=== PATIENT | male | born 1960 | race Caucasian/White ===

== ENCOUNTER 2016-12-13 18:24 | Emergency (ER) | payer OTHER ==
[~2016-12-13] VITALS: Ht 180.3 cm; Wt 103.4 kg
[~2016-12-13 18:24] MED LIST: AZIT250T6 PO; CYCL10TA2 PO; DOCU-109 PO; DOXY50CA PO; METH-39 PO; OMEG1CAP6 PO; OXYC-327 PO; PRED-220 PO; PRED20TA PO; SIMV10TA3 PO
[2016-12-13] MEDS ORDERED: oxyCODONE/APAP 5/325 1 TAB TABLET PO ONE (20:30)
[2016-12-13 21:08] VITALS: BP 134/89
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
== END 2016-12-13 21:35 | disposition home or self-care (01) ==
LOC: ER 18:24
DX: S60.552A Superficial foreign body of left hand, initial encounter (principal); E78.00 Pure hypercholesterolemia, unspecified; K21.9 Gastro-esophageal reflux disease without esophagitis; Z96.669 Presence of unspecified artificial ankle joint; W34.010A Accidental discharge of airgun, initial encounter; Y93.89 Activity, other specified; Y92.89 Other specified places as the place of occurrence of the external cause; Y99.8 Other external cause status
CPT/HCPCS: 73130; 99284

== ENCOUNTER → 2017-03-28 | Outpatient (CLI) | payer OTHER ==
[~2017-03-28] MED LIST changes: +GADOBUTROL 10 MMOL/10 ML VIAL IV ONE
--- NOTE | 2017-03-28 10:04 | KCIC ---
EXAM: Orbits, single view. HISTORY: Metallic foreign body MRI clearance. COMPARISON: None. FINDINGS: Frontal views of the. There is no body overlying the orbits. There is no sinus opacification or air-fluid level. There is mild nasal septal deviation. There is dental amalgam. IMPRESSION: No metallic foreign body to preclude MRI. Electronically signed by: Estephania Darling MD (03/28/2017 10:01 AM) [facility]
--- NOTE | 2017-03-28 13:46 | KCIC ---
MRI of the lumbar spine without and with contrast 03/28/2017 CLINICAL HISTORY: Chronic low back pain which radiates down the left leg. Left leg numbness. History of previous lumbar spine surgery. TECHNIQUE: Unenhanced T1-weighted and T2-weighted sagittal and axial and inversion recovery sagittal images of the lumbar spine were obtained. After the intravenous administration of 10 cc of Gadavist, enhanced T1-weighted sagittal and axial images of the lumbar spine were obtained. FINDINGS: Comparison is made to patient's CT lumbar myelogram dated 11/30/2014. Minimal S-shaped curvature of the thoracolumbar spine is seen. Degenerative signal changes are seen involving the L3-4, L4-5 and L5-S1 discs. Degenerative signal changes are seen within the marrow surrounding these discs. The conus medullaris is normal morphology, position, and signal characteristics. At the L1-2 L1-2, L2-3 and L3-4 disc spaces there are minimal to mild generalized disc bulges. Degenerative changes are seen involving the facet joints bilaterally. There is mild ligamentum flavum hypertrophy bilaterally. These findings when combined do not result in significant central spinal canal or neuroforaminal stenosis. At the L4-5 disc space there is a mild to moderate generalized disc bulge. This is eccentric to the left. Degenerative changes are seen involving the facet joints bilaterally. There is moderate ligamentum flavum hypertrophy bilaterally. These findings when combined result in mild central spinal canal stenosis. Mild bilateral neural foraminal stenosis is seen. At the L5-S1 disc space the patient is status post left hemilaminotomy. There is a mild generalized disc bulge. Degenerative changes are seen involving the facet joints, left greater than right. These findings when combined do not result in significant central spinal canal stenosis. Mild left neural foraminal stenosis is seen. The right neural foramen is patent. IMPRESSION: 1. Post left hemilaminotomy at L5-S1. 2. The changes of degenerative disc disease are seen involving the lumbar spine. These findings do not result in significant central spinal canal stenosis. Mild central spinal canal stenosis is seen at L4-5. Mild bilateral neural foraminal stenosis is seen at L4-5. Mild left neural foraminal stenosis is seen at L5-S1. Electronically signed by: Chirag Mancini MD (03/28/2017 1:43 PM) [facility]
== END | disposition home or self-care (01) ==
LOC: KCIC MRI 09:30
PROVIDERS: ATTEND Family Medicine
DX: J34.2 Deviated nasal septum (principal); M51.16 Intervertebral disc disorders with radiculopathy, lumbar region; M48.061 Spinal stenosis, lumbar region without neurogenic claudication; R20.0 Anesthesia of skin
CPT/HCPCS: 70030; 72158; A9585

== ENCOUNTER 2021-03-17 09:40 | Outpatient (CLI) | payer OTHER ==
[2021-03-17 09:24] VITALS: BP 149/90
[~2021-03-17 09:40] MED LIST changes: +CONTRAST GIVEN. MC PRN; +DICL50TA4 PO; -GADOBUTROL 10 MMOL/10 ML VIAL IV ONE; +IOHEXOL 180 MG/ML 10 ML VIAL. IJ ONE; +LIDOCAINE 1% Multi-Dose 20 ML VIAL. INJ ONE; -OXYC-327 PO; +OXYC1TAB19 PO; +RANI300C PO; +SIMV10TA15 PO; -SIMV10TA3 PO; +SIMV20TA18 PO; +TIZA4TAB2 PO
[2021-03-17 09:46] VITALS: BP 143/100
--- NOTE | 2021-03-17 09:47 | NUR ---
Instructions given to patient. Verbalized understanding. No headache at this time. VS stable. Able to drink coffee w/ no issues. Patient's driving home. All belongings taken with patient at time of discharge.
--- NOTE | 2021-03-17 09:47 | NUR ---
CD provided w/ imaging.
--- NOTE | 2021-03-17 10:27 | RAD ---
EXAM: Fluoroscopic guided lumbar puncture for CT myelography; lumbar spine CT myelogram. HISTORY: Lower back pain and lower extremity pain. TECHNIQUE: The risks of the procedure discussed with the patient and written and verbal consent was o btained. A timeout was performed. The patient was placed in a prone position on the fluoroscopy table and a site overlying L4-L5 was selected for needle entry. The skin in this location was sterilely pr epped, draped and infiltrated with 1 percent lidocaine. A 22-gauge needle was advanced into the theca l sac. Appropriate needle tip positioning was confirmed with spontaneous yield of CSF within the need le hub. 15 cc Isovue 180 intrathecal contrast was injected into the thecal sac. The needle was remove d and a sterile bandage was placed. Prone and upright neutral, flexion and extension views were obtai jojo. A total of 4 fluoroscopic images were obtained. The total fluoroscopy time was 1.1 minute. The p atient was transferred to the CT suite for the post myelogram CT portion of the exam. The patient was monitored in the nursing unit for one or prior to discharge. The patient tolerated the procedure wit hout complication. *One or more of the following individualized dose reduction techniques were utilized for this examina tion: 1. Automated exposure control. 2. Adjustment of the mA and/or kV according to patient size. 3. Use of iterative reconstruction technique. COMPARISON: CT myelogram dated 11/30/2014. FINDINGS: The fluoroscopic images demonstrate 3 mm grade 1 anterolisthesis of L4 on L5 which increase s to 5 mm with flexion and decreases to 2 mm with extension. There is 2 mm retrolisthesis of L3 on L4 which does not change between flexion and extension. There is multilevel endplate remodeling. The CT images demonstrate multilevel endplate remodeling and anterior predominant osteophytosis. Ther e is no fracture or suspicious osseous lesion. There is mild scoliosis. There is 3 mm grade 1 anterol isthesis of L4 on L5. There is 2 mm retrolisthesis of L3 on L4. The conus terminates at L1. There are punctate nonobstructing right renal stones. There is mild aortobiiliac atherosclerosis. There is deg enerative subchondral sclerosis and vacuum phenomenon involving the sacroiliac joints. At L1-L2, there is anterior predominant endplate remodeling. There is moderate right and mild left fa cet arthropathy. There is no stenosis. At L2-L3, there is anterior predominant endplate remodeling. There is mild bilateral facet arthropath y. There is no stenosis. At L3-L4, there is a left foraminal to extra foraminal disc protrusion superimposed on a disc bulge a nd anterior predominant endplate remodeling. There is mild right and moderate left facet arthropathy. There is minimal retrolisthesis. There is mild right and moderate left foraminal stenosis. There is no central canal stenosis. At L4-L5, there is a disc bulge and endplate osteophytosis. There is severe bilateral facet arthropat hy. There is grade 1 anterolisthesis. There is severe left greater than right foraminal stenosis. The re is mild central canal stenosis. At L5-S1, there is a disc bulge. There is mild right and severe left facet arthropathy. There is braeden re left foraminal stenosis. IMPRESSION: 1. Multilevel degenerative change involving the lumbar spine, described in detail above. This is asso ciated with mild right and moderate left foraminal stenosis at L3-L4, severe left greater than right foraminal and mild central canal stenosis at L4-L5 and severe left foraminal stenosis at L5-S1. The d egenerative changes have increased at the mid lower lumbar levels compared to the prior exam. 2. Minimal grade 1 anterolisthesis of L4 and L5, new compared to the prior study. There is stable min imal retrolisthesis of L3 on L4 and mild lumbar scoliosis. Electronically signed by: Estephania Darling MD (03/17/2021 10:25 AM) [id number]
== END 2021-03-17 09:50 | disposition home or self-care (01) ==
LOC: RAD 09:40
PROVIDERS: ATTEND Neurological Surgery
DX: M47.26 Other spondylosis with radiculopathy, lumbar region (principal); M79.606 Pain in leg, unspecified; M48.061 Spinal stenosis, lumbar region without neurogenic claudication; E78.00 Pure hypercholesterolemia, unspecified; G47.30 Sleep apnea, unspecified; M19.90 Unspecified osteoarthritis, unspecified site; E11.9 Type 2 diabetes mellitus without complications; Z79.899 Other long term (current) drug therapy; Z98.890 Other specified postprocedural states; Z72.89 Other problems related to lifestyle; Z82.49 Family history of ischemic heart disease and other diseases of the circulatory system
CPT/HCPCS: 62304; 72132

== ENCOUNTER → 2021-03-30 | Outpatient (CLI) | payer OTHER ==
[2021-03-17 09:46] VITALS: BP 143/100
[~2021-03-30] MED LIST changes: -CONTRAST GIVEN. MC PRN; -IOHEXOL 180 MG/ML 10 ML VIAL. IJ ONE; -LIDOCAINE 1% Multi-Dose 20 ML VIAL. INJ ONE
--- NOTE | 2021-03-30 15:19 | PDOC ---
Progress Note - Pain Clinic Date of Service: DOS: DATE: 03/30/21 TIME: 15:15 Diagnosis: Dx: Lumbar radiculopathy with lumbar degenerative disease lumbar postlaminectomy syndrome History or Present Illness: HPI: 60-year-old male with history of low back and bilateral lower extremity pain last seen January 2019 patient underwent a lumbar epidural steroid traction with about 30% improvement patient has had significant pain low back and bilateral lower extremity since that time is status post L5-S1 decompressive surgery in 2014. Patient had good results initially but then the pain returned fairly significantly over the next 2 to 3 years but the pain still persist in the low back and bilateral lower extremities posterior gluteus posterior thigh posterior calf to the ankles bilaterally. Patient did have a recent MRI scan and CT with myelogram demonstrating multilevel degenerative changes with moderate right and left foraminal stenosis L3-4 severe left greater than right foraminal and mild central canal stenosis at L4-5 and severe left foraminal stenosis at L5-S1. Patient's neurosurgeon is not recommending any surgery at this time is requesting a spinal cord stimulation evaluation. Patient reports the pain is an 8 on scale 10 is worse over the past week 6 on average 5 its least 6 today. Patient reports is constant tight shooting worse with walking standing changing positions better with sitting or lying down the right in the car from 115 to 20 minutes causes significant pain especially in the left leg patient reports better at night better with laying down does not generally awaken her from sleep but can once or twice on average. Patient reports no bowel or bladder incontinence no complete motor loss but significant fatigability of the lower extremities where he has stumbled several times but not fallen. Physical Exam: VS: Blood pressure is 135/95 pulse 81 respirations 18 temperature 97.8 F height is 5 foot 11 inches weight is 248 pounds PE: PHYSICAL EXAMINATION: GENERAL: The patient is awake, alert, oriented, appropriate, very pleasant in demeanor HEENT: Shows normocephalic, atraumatic. Extraocular movements are intact and symmetrical. Oral cavity: Mucous membranes moist and pink. Dentition is intact. NECK: Shows anterior throat supple without palpable lymphadenopathy noted. Swallow reflex symmetrical. CHEST: Shows normal on inspection. Breath sounds are clear bilaterally, no rales rhonchi wheezes auscultated. HEART: Shows S1, S2 clear. No murmurs auscultated. ABDOMEN: Soft, nontender, nondistended, obese. No palpable organomegaly is noted. BACK: Shows spine grossly in the midline. Normal-appearing cervical lordotic curvature. There is slightly increased thoracic kyphosis, some minor flattening of the lumbar lordotic curvature, with well-healed surgical scar. Lumbar paraspinous muscles show symmetrical on inspection, on palpation shows some moderate tenderness diffusely throughout the upper, middle and lower distribution of the paraspinous muscles bilaterally and also into the lower thoracic paraspinous musculature, firm and tender, without specific trigger points, without radiation of pain. The patient has good rotational motion of the lumbar spine, both laterally as well as extension and flexion without significant difficulty. No tenderness over the spinous processes, sacrum or sacroiliac regions. EXTREMITIES: Lower extremities show deep tendon reflexes 2+ in the patellar and tendo calcaneus tendons. Motor exam is 5 on a scale of 5 with right dorsiflexion, extension, quadriceps and hamstring flexion and 5/5 on the left. Peripheral pulses are 1+ posterior tibial. No peripheral edema is noted bilaterally. Lower extremities are warm and dry to touch, equal in color and appearance. SKIN: Shows warm and dry, good turgor. No edema. No sores, rashes or bruising throughout. Procedure: Procedure: Options discussed with the patient. Patient's old chart was reviewed as was his current medication regimen updated and current review of systems updated today as well. We will preauthorize patient for spinal cord stimulator temporary leads placement x2. Patient will have psychiatric evaluation initially and pending clearance will have patient return for spinal cord stimulator trial placement. Medication Injected: Med Injected: None Condition at Discharge: Condition at Discharge: Condition at discharge is stable. TEMI CHACON MD Mar 30, 2021 15:19
== END | disposition home or self-care (01) ==
LOC: PNCL 14:38
PROVIDERS: ATTEND Anesthesiology
DX: M51.16 Intervertebral disc disorders with radiculopathy, lumbar region (principal); M96.1 Postlaminectomy syndrome, not elsewhere classified; M48.061 Spinal stenosis, lumbar region without neurogenic claudication; E78.00 Pure hypercholesterolemia, unspecified; E11.9 Type 2 diabetes mellitus without complications; G47.30 Sleep apnea, unspecified; M19.90 Unspecified osteoarthritis, unspecified site; Z72.89 Other problems related to lifestyle; Z79.899 Other long term (current) drug therapy; Z98.890 Other specified postprocedural states
CPT/HCPCS: 99212; G0463

== ENCOUNTER 2021-04-11 08:37 | Emergency (ER) | payer OTHER ==
[~2021-04-11] VITALS: Ht 175.3 cm; Wt 100.0 kg
[~2021-04-11 08:37] MED LIST changes: +CYCL10TA19 PO; -CYCL10TA2 PO; +TIZA-75 PO; -TIZA4TAB2 PO
[2021-04-11] MEDS ORDERED: ONDANSETRON PF 4 MG/2 ML VIAL. IVP ONE (10:15)
[2021-04-11] MEDS ORDERED: IV NORMAL SALINE 1000ML BAG 1,000 ML IV ONE (10:15)
[2021-04-11] MEDS ORDERED: KETOROLAC 30 MG/ML VIAL. IVP ONE (10:15)
--- NOTE | 2021-04-11 10:18 | PHYS DOC ---
Past Medical History Past Medical History: Constipation, GERD, High Cholesterol, Other Additional Past Medical Histor: high cholesterol Past Surgical History: Knee Replacement Additional Past Surgical Histo: BX CARPAL TUNNEL, L KNEE, BACK Smoking Status: Never Smoker Alcohol Use: Occasionally Drug Use: None General Adult EDM: Chief Complaint: FLANK PAIN HPI: HPI: Patient is a 60-year-old male who presents to the emergency department complaining of sudden onset of left flank pain this morning while at work. Patient reports it hit him like a ton of bricks, 10 out of 10 pain, reports a history of kidney stones, sees a urologist at [facility] for intermittent hematuria, reports his last kidney stone attack was approximately 20 years ago, reports mild nausea without vomiting diarrhea or constipation, denies seeing blood in his stool or his urine, denies abdominal pains or abdominal discomfort, denies chest pain, chest congestion, recent fever or chills. Patient denies injury to his back. Patient denies numbness or tingling to his buttocks or genitals, patient denies urinary pressure, increased urinary frequency, urinary burning, denies STI concerns, denies rashes or lesions to his genitals. Patient denies other physical complaints or physical concerns. Review of Systems: Review of Systems: 14 body systems of review of systems have been reviewed. See HPI for pertinent positives and negative responses, otherwise all other systems are negative, nonpertinent or noncontributory. Constitutional: Negative except as outlined in HPI above. Skin: Negative except as outlined in HPI above. Eyes: Negative except as outlined in HPI above. HENT: Negative except as outlined in HPI above. Respiratory: Negative except as outlined in HPI above. Cardiovascular: Negative except as outlined in HPI above. GI: Negative except as outlined in HPI above. : Negative except as outlined in HPI above. Musculoskeletal: Negative except as outlined in HPI above. Integument: Negative except as outlined in HPI above. Neurologic: Negative except as outlined in HPI above. Endocrine: Negative except as outlined in HPI above. Lymphatic: Negative except as outlined in HPI above. Psychiatric: Negative except as outlined in HPI above. Heart Score: C/O Chest Pain: No Risk Factors: Risk Factors: DM, Current or recent (<one month) smoker, HTN, HLP, family history of CAD, obesity. Risk Scores: Score 0 - 3: 2.5% MACE over next 6 weeks - Discharge Home Score 4 - 6: 20.3% MACE over next 6 weeks - Admit for Clinical Observation Score 7 - 10: 72.7% MACE over next 6 weeks - Early Invasive Strategies Allergies: Allergies: Allergies Coded Allergies Type Severity Reaction Last Updated Verified No Known Drug Allergies 02/03/15 No Physical Exam: PE: Constitutional: Well developed, well nourished, appears uncomfortable otherwise nontoxic in appearance. HENT: Normocephalic, atraumatic. Eyes: Conjunctiva normal, no discharge. Neck: Normal range of motion. Cardiovascular: Distal cap refill less than 2 seconds, no cyanosis appreciated. Lungs & Thorax: Patient is in no respiratory distress, no adventitious lung sounds appreciated. Abdomen: Bowel sounds normal, soft, no tenderness, no masses, no pulsatile masses. No bruising or skin discoloration of the abdomen. Skin: Warm, dry, no erythema, no rash. Back: No midline spinal tenderness, no right-sided CVA TTP, positive left-sided CVA TTP. Extremities: No tenderness, no cyanosis, no clubbing, ROM intact, no edema. Neurologic: Alert and oriented X 3, normal motor function, normal sensory function, no focal deficits noted. Psychologic: Affect normal, judgement normal, mood normal. Current Patient Data: Labs: Laboratory Tests Test 04/11/21 10:10 04/11/21 10:15 White Blood Count 8.4 x10^3/uL Red Blood Count 5.09 x10^6/uL Hemoglobin 14.8 g/dL Hematocrit 44.4 % Mean Corpuscular Volume 87 fL Mean Corpuscular Hemoglobin 29 pg Mean Corpuscular Hemoglobin Concent 33 g/dL Red Cell Distribution Width 15.0 % Platelet Count 219 x10^3/uL Neutrophils (%) (Auto) 77 % Lymphocytes (%) (Auto) 14 % Monocytes (%) (Auto) 7 % Eosinophils (%) (Auto) 2 % Basophils (%) (Auto) 1 % Neutrophils # (Auto) 6.5 x10^3/uL Lymphocytes # (Auto) 1.2 x10^3/uL Monocytes # (Auto) 0.5 x10^3/uL Eosinophils # (Auto) 0.2 x10^3/uL Basophils # (Auto) 0.1 x10^3/uL Sodium Level 140 mmol/L Potassium Level 4.4 mmol/L Chloride Level 105 mmol/L Carbon Dioxide Level 27 mmol/L Anion Gap 8 Blood Urea Nitrogen 13 mg/dL Creatinine 0.9 mg/dL Estimated GFR (Cockcroft-Gault) 86.4 BUN/Creatinine Ratio 14 Glucose Level 119 mg/dL Calcium Level 8.8 mg/dL Total Bilirubin 0.5 mg/dL Aspartate Amino Transf (AST/SGOT) 21 U/L Alanine Aminotransferase (ALT/SGPT) 50 U/L Alkaline Phosphatase 91 U/L Total Protein 7.6 g/dL Albumin 3.9 g/dL Albumin/Globulin Ratio 1.1 Urine Collection Type Unknown Urine Color Yellow Urine Clarity Clear Urine pH 6.5 Urine Specific [place] 1.020 Urine Protein Negative mg/dL Urine Glucose (UA) Negative mg/dL Urine Ketones (Stick) Negative mg/dL Urine Blood Small Urine Nitrite Negative Urine Bilirubin Negative Urine Urobilinogen Dipstick 1.0 mg/dL Urine Leukocyte Esterase Negative Urine RBC 3-5 /HPF Urine WBC Occ /HPF Urine Squamous Epithelial Cells Few /LPF Urine Bacteria 0 /HPF Urine Mucus Mod /LPF Current Medications Medications (Trade) Dose Ordered Sig/Shannan Route PRN Reason Start Time Stop Time Status Last Admin Dose Admin Sodium Chloride 1,000 ml @ 1,000 mls/hr 1X ONCE IV 04/11/21 10:15 04/11/21 11:14 DC 04/11/21 10:37 Ketorolac Tromethamine (Toradol 30mg Vial) 30 mg 1X ONCE IVP 04/11/21 10:15 04/11/21 10:16 DC 04/11/21 10:38 Ondansetron HCl (Zofran) 4 mg 1X ONCE IVP 04/11/21 10:15 04/11/21 10:16 DC 04/11/21 10:38 Laboratory Tests Test 04/11/21 10:10 04/11/21 10:15 White Blood Count 8.4 x10^3/uL Red Blood Count 5.09 x10^6/uL Hemoglobin 14.8 g/dL Hematocrit 44.4 % Mean Corpuscular Volume 87 fL Mean Corpuscular Hemoglobin 29 pg Mean Corpuscular Hemoglobin Concent 33 g/dL Red Cell Distribution Width 15.0 % Platelet Count 219 x10^3/uL Neutrophils (%) (Auto) 77 % Lymphocytes (%) (Auto) 14 % Monocytes (%) (Auto) 7 % Eosinophils (%) (Auto) 2 % Basophils (%) (Auto) 1 % Neutrophils # (Auto) 6.5 x10^3/uL Lymphocytes # (Auto) 1.2 x10^3/uL Monocytes # (Auto) 0.5 x10^3/uL Eosinophils # (Auto) 0.2 x10^3/uL Basophils # (Auto) 0.1 x10^3/uL Sodium Level 140 mmol/L Potassium Level 4.4 mmol/L Chloride Level 105 mmol/L Carbon Dioxide Level 27 mmol/L Anion Gap 8 Blood Urea Nitrogen 13 mg/dL Creatinine 0.9 mg/dL Estimated GFR (Cockcroft-Gault) 86.4 BUN/Creatinine Ratio 14 Glucose Level 119 mg/dL Calcium Level 8.8 mg/dL Total Bilirubin 0.5 mg/dL Aspartate Amino Transf (AST/SGOT) 21 U/L Alanine Aminotransferase (ALT/SGPT) 50 U/L Alkaline Phosphatase 91 U/L Total Protein 7.6 g/dL Albumin 3.9 g/dL Albumin/Globulin Ratio 1.1 Urine Collection Type Unknown Urine Color Yellow Urine Clarity Clear Urine pH 6.5 Urine Specific [place] 1.020 Urine Protein Negative mg/dL Urine Glucose (UA) Negative mg/dL Urine Ketones (Stick) Negative mg/dL Urine Blood Small Urine Nitrite Negative Urine Bilirubin Negative Urine Urobilinogen Dipstick 1.0 mg/dL Urine Leukocyte Esterase Negative Urine RBC 3-5 /HPF Urine WBC Occ /HPF Urine Squamous Epithelial Cells Few /LPF Urine Bacteria 0 /HPF Urine Mucus Mod /LPF Current Medications Medications (Trade) Dose Ordered Sig/Shannan Route PRN Reason Start Time Stop Time Status Last Admin Dose Admin Sodium Chloride 1,000 ml @ 1,000 mls/hr 1X ONCE IV 04/11/21 10:15 04/11/21 11:14 DC 04/11/21 10:37 Ketorolac Tromethamine (Toradol 30mg Vial) 30 mg 1X ONCE IVP 04/11/21 10:15 04/11/21 10:16 DC 04/11/21 10:38 Ondansetron HCl (Zofran) 4 mg 1X ONCE IVP 04/11/21 10:15 04/11/21 10:16 DC 04/11/21 10:38 EKG: EKG: [] Radiology/Procedures: Radiology/Procedures: PATIENT: DONTE NELSON CACCOUNT: [id number] : 1960 LOCATION: ER AGE: 60 SEX: M EXAM STATUS: PRE ER ORD. PHYSICIAN: ELHAM BE APRN REASON: Left CVA tenderness, positive hematuria, stone study PROCEDURE: CT ABDOMEN PELVIS WO CONTRAST CT ABDOMEN+PELVIS WO History: Left CVA tenderness. Positive hematuria. Rule out stone. Comparison: CT lumbar spine 03/17/2021 Technique: Noncontrast CT of the abdomen and pelvis. Findings: Patchy opacification of the left lateral lower lobe may represent atelectasis. No pleural effusion or pneumothorax. Heavy coronary artery calcification and likely coronary stents. Diffuse hypodensity liver compatible steatosis. Unremarkable gallbladder. The pancreas, spleen and adrenal glands are unremarkable. Subtle increased density in the right renal pyramids without discrete stone. No right hydronephrosis. There is mild left hydronephrosis and proximal hydroureter. Left posterior hilar lip 2.3 cm benign cyst. Proximal left ureteral stone measuring 3 mm diameter. The stomach and small bowel are unremarkable. Mild sigmoid diverticulosis. No evidence of diverticulitis. No abdominopelvic adenopathy. The soft tissues are unremarkable. Minimal atherosclerotic calcification of the aorta. Multilevel degenerative changes of the lumbar spine with prominent facet hypertrophy and anterior osteophytes. Impression: 1. Left proximal ureter 3 mm stone with mild hydronephroureter. 2. Hepatic steatosis. 3. Patchy opacification left lateral lower lobe may represent atelectasis. Superimposed infection can't be excluded. ------ Exposure: One or more of the following individualized dose reduction techniques were utilized for this examination: 1. Automated exposure control 2. Adjustment of the mA and/or kV according to patient size 3. Use of iterative reconstruction technique. Electronically signed by: Rory Manjarrez MD (04/11/2021 11:17 AM) [id number] Course & Med Decision Making: Course & Med Decision Making Pertinent Labs and Imaging studies reviewed. (See chart for details) 60-year-old male, vital signs reviewed, presents emergency department concerning sudden onset of left flank/CVA pain. Physical examination concerning for kidney stone pain, will order urinalysis assay, IV Zofran for nausea, IV ondansetron, 1 L normal saline. Urinalysis reveals positive hematuria without leukocyte esterase, negative nitrates, will order CT abdomen pelvis stone study. CT abdomen pelvis concerning for 3 mm stone distal left ureter, upon reevaluation of the patient, patient reports pain relief with medication given in the ED today. Discussed with patient will start on Flomax for a short regimen to assist with passing the kidney stone, the patient's labs are unremarkable other than slight hematuria, patient does have good follow-up [facility], discussed with patient strict follow-up with urologist this week, return to ER precautions or concerns, patient is amenable to ED discharge planning. Discussed with the patient all findings and diagnostic testing as well as the need to follow-up with their primary care provider for further evaluation and treatment or return to the ED if any new or worsening symptoms. Strict return precautions were also discussed at length, the patient voiced understanding and agreement with the discharge planning. The patient was nontoxic in appearance, in no apparent distress, and hemodynamically stable at the time of disposition. Dragon Disclaimer: Dragon Disclaimer: This electronic medical record was generated, in whole or in part, using a voice recognition dictation system. Departure Departure Impression: Primary Impression: Kidney stone on left side Disposition: 01 HOME / SELF CARE / HOMELESS Condition: GOOD Referrals: BRIA SPARKS (PCP) Patient Instructions: Kidney Stones Additional Instructions: You were seen today in the emergency department for pain on the left side of your back. You were diagnosed today with a kidney stone, it is 3 mm. As we discussed, I am writing a prescription for pain medication along with Flomax to help relax her ureter which will assist in helping you passed the stone. Please make an appointment to see your urologist at the [facility] this week for reevaluation of your kidney stone. Drink plenty of fluids. Return to the emergency department for worsening symptoms or other concerns thank you for visiting our Emergency Department. It was a pleasure taking care of you today in the emergency department and we appreciate you trusting us with your care. If any additional problems come up don't hesitate to return to visit us. Please follow up with your primary care provider so they can plan additional care if needed and know about the problem that you had. If symptoms worsen come back to the Emergency Department. Any concerning symptoms that start such as chest pain, shortness of air, weakness or numbness on one side of the body, running high fevers or any other concerning symptoms return to the ER. EMERGENCY DEPARTMENT GENERAL DISCHARGE INSTRUCTIONS Thank you for coming to [facility] Emergency Department (ED) today and trusting us with you care. We trust that you had a positive experience in our Emergency Department. If you wish to speak to the department management, you may call the Director at [phone]. YOUR FOLLOW UP INSTRUCTIONS ARE FOLLOWS: 1. Do you have a private Doctor? If you do not have a private doctor, please ask for a resource list of physicians or clinics that may be able to assist you with follow up care. 2. The Emergency Physicain has interpreted your x-rays. The X-Ray specialist will also review them. If there is a change in the findings, you will be notified in 48 hours when at all possible. 3. A lab test or culture has been done, your results will be reviewed and you will be notified if you need a change in treatment. ADDITIONAL INSTRUCTIONS AND INFORMATION: 1. Your care today has been supervised by a physician who is specially trained in emergency care. Many problems require more than one evaluation for a complete diagnosis and treatment. We recommend that you schedule your follow up appointment as recom mended to ensure complete treatment of you illness or injury. If you are unable to obtain follow up care and continue to have a problem, or if your condition worsens, we recommend that you return to the ED. 2. We are not able to safely determine your condition over the phone nor are we able to give sound medical advice over the phone. For these safety reasons, if you call for medical advice we will ask you to come to the ED for further evaluation. 3. If you have any questions regarding these discharge instructions please call the ED at [phone]. SAFETY INFORMATION: In the interest of safety, wellness, and injury prevention; we encourage you to wear your sealbelt, if you smoke; quite smoking, and we encourage family to use a protective helmet for bicycling and other sporting events that present an increased risk for head injury. IF YOUR SYMPTOMS WORSEN OR NEW SYMPTOMS DEVELOP, OR YOU HAVE CONCERNS ABOUT YOUR CONDITION; OR IF YOUR CONDITION WORSENS WHILE YOU ARE WAITING FOR YOUR FOLLOW UP APPOINTMENT; EITHER CONTACT YOUR PRIMARY CARE DOCTOR, THE PHYSICIAN WHOSE NAME AND NUMBER YOU WERE GIVEN, OR RETURN TO THE ED IMMEDIATELY. Scripts Hydrocodone Bit/Acetaminophen (HYDROCODONE-APAP 5-325 ) 1 Tab Tablet 1 TAB PO PRN Q6HRS PRN for PAIN, #10 TAB 0 Refills Prov: ELHAM BE APRN 04/11/21 Ibuprofen (IBUPROFEN) 600 Mg Tablet 600 MG PO PRN Q6HRS PRN for INFLAMMATION, #20 TAB 0 Refills Prov: ELHAM BE APRN 04/11/21 Tamsulosin Hcl (FLOMAX) 0.4 Mg Cap.er.24h 1 CAP PO DAILY for kidney stone, #5 CAP 0 Refills Prov: ELHAM BE APRN 04/11/21 ELHAM BE APRN Apr 11, 2021 10:17
[2021-04-11 10:24] LABS: BASO # 0.1 x10^3/uL (0.0-0.2); BASO % 1 % (0-3); EOS # 0.2 x10^3/uL (0.0-0.7); EOS % 2 % (0-3); HEMATOCRIT 44.4 % (39.0-53.0); HEMOGLOBIN 14.8 g/dL (13.0-17.5); LYMPH # 1.2 x10^3/uL (1.0-4.8); LYMPH % 14 % (24-48); MEAN CORPUSCULAR HEMOGLOBIN 29 pg (25-35); MEAN CORPUSCULAR HGB CONC 33 g/dL (31-37); MEAN CORPUSCULAR VOLUME 87 fL (79-100); MONO # 0.5 x10^3/uL (0.0-1.1); MONO % 7 % (0-9); NEUT # 6.5 x10^3/uL (1.8-7.7); NEUT % 77 % (31-73); PLATELET COUNT 219 x10^3/uL (140-400); RED BLOOD COUNT 5.09 x10^6/uL (4.30-5.70); WHITE BLOOD COUNT 8.4 x10^3/uL (4.0-11.0)
[2021-04-11 10:25] LABS: BILIRUBIN,URINE NEGATIVE (NEG); CLARITY,URINE CLEAR; COLOR,URINE YELLOW; NITRITE,URINE NEGATIVE (NEG); PH,URINE 6.5 (<5.0-8.0); PROTEIN,URINE NEGATIVE (NEG-TRACE)
[2021-04-11 10:34] LABS: BACTERIA,URINE 0 /HPF (0-FEW); WBC,URINE OCC /HPF (0-4)
[2021-04-11 10:37] LABS: CALCIUM 8.8 mg/dL (8.5-10.1); CREATININE 0.9 mg/dL (0.7-1.3); GFR 86.4; POTASSIUM 4.4 mmol/L (3.5-5.1)
[2021-04-11 10:43] LABS: ALBUMIN 3.9 g/dL (3.4-5.0); ALBUMIN/GLOBULIN RATIO 1.1 (1.0-1.7); TOTAL BILIRUBIN 0.5 mg/dL (0.2-1.0); TOTAL PROTEIN 7.6 g/dL (6.4-8.2)
--- NOTE | 2021-04-11 11:20 | RAD ---
CT ABDOMEN+PELVIS WO History: Left CVA tenderness. Positive hematuria. Rule out stone. Comparison: CT lumbar spine 03/17/2021 Technique: Noncontrast CT of the abdomen and pelvis. Findings: Patchy opacification of the left lateral lower lobe may represent atelectasis. No pleural effusion or pneumothorax. Heavy coronary artery calcification and likely coronary stents. Diffuse hypodensity liver compatible steatosis. Unremarkable gallbladder. The pancreas, spleen and ad renal glands are unremarkable. Subtle increased density in the right renal pyramids without discrete stone. No right hydronephrosis. There is mild left hydronephrosis and proximal hydroureter. Left posterior hilar lip 2.3 cm benign c yst. Proximal left ureteral stone measuring 3 mm diameter. The stomach and small bowel are unremarkable. Mild sigmoid diverticulosis. No evidence of diverticuli tis. No abdominopelvic adenopathy. The soft tissues are unremarkable. Minimal atherosclerotic calcifi cation of the aorta. Multilevel degenerative changes of the lumbar spine with prominent facet hypertr ophy and anterior osteophytes. Impression: 1. Left proximal ureter 3 mm stone with mild hydronephroureter. 2. Hepatic steatosis. 3. Patchy opacification left lateral lower lobe may represent atelectasis. Superimposed infection ca n't be excluded. ------ Exposure: One or more of the following individualized dose reduction techniques were utilized for thi s examination: 1. Automated exposure control 2. Adjustment of the mA and/or kV according to patient size 3. Use of iterative reconstruction technique. Electronically signed by: Rory Manjarrez MD (04/11/2021 11:17 AM) [id number]
[2021-04-11] MEDS ORDERED: HYDR-2761 PO (11:52)
[2021-04-11] MEDS ORDERED: TAMS0.4C97 PO (11:52)
[2021-04-11] MEDS ORDERED: IBUP-1007 PO (11:52)
[2021-04-11 11:56] VITALS: BP 117/70
== END 2021-04-11 12:02 | disposition home or self-care (01) ==
LOC: ER 08:37
DX: R10.9 Unspecified abdominal pain (principal); R11.2 Nausea with vomiting, unspecified; R19.7 Diarrhea, unspecified; K21.9 Gastro-esophageal reflux disease without esophagitis; E78.00 Pure hypercholesterolemia, unspecified
CPT/HCPCS: 36415; 74176; 80053; 81001; 85025; 96361; 96374; 96375; 99285; J1885; J2405; J7030

== ENCOUNTER → 2021-05-04 | Outpatient (CLI) | payer OTHER ==
[2021-04-11 11:56] VITALS: BP 117/70
[~2021-05-04] MED LIST changes: +HYDR-2761 PO; +IBUP-1007 PO; +LIDOCAINE 1% PF 2 ML VIAL. ONE; +TAMS0.4C97 PO
--- NOTE | 2021-05-04 15:28 | PDOC ---
Progress Note - Pain Clinic Date of Service: DOS: DATE: 05/04/21 TIME: 15:25 Diagnosis: Dx: Lumbar radiculopathy with lumbar degenerative disease and lumbar postlaminectomy syndrome History or Present Illness: HPI: 60-year-old male returns for follow-up's complaints of low back pain bilateral lower extremity pain posterior gluteus posterior thighs posterior calves we discussed a spinal cord stimulator and patient has gone through psychiatric valuation as well with good clearance for adequate mentation for implantable spinal devices. 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 Patient reports that it impedes his activity daily significantly especially recreational activities which he is unable to perform secondary to the pain. Patient reports no bowel or bladder incontinence. Physical Exam: VS: Blood pressure 132/85 pulse 81 respirations 20 temperature 98.1 F height is 5 foot 11 inches weight is 249 pounds PE: PHYSICAL EXAMINATION: GENERAL: The patient is awake, alert, oriented, appropriate, very pleasant in demeanor, patient [place] by his spouse HEENT: Shows normocephalic, atraumatic. Extraocular movements are intact and symmetrical. Oral cavity: Mucous membranes moist and pink. NECK: Shows anterior throat supple without palpable lymphadenopathy noted. Swallow reflex symmetrical. CHEST: Shows normal on inspection. Breath sounds are clear bilaterally, no rales or rhonchi. HEART: Shows S1, S2 clear. No murmurs auscultated. ABDOMEN: Soft, nontender, nondistended, obese. No palpable organomegaly is noted. BACK: Shows spine grossly in the midline. Normal-appearing cervical lordotic curvature. There is slightly increased thoracic kyphosis, some minor flattening of the lumbar lordotic curvature. Lumbar paraspinous muscles show symmetrical on inspection, on palpation shows some moderate tenderness diffusely throughout the upper, middle and lower distribution of the paraspinous muscles, but without specific trigger points, without radiation of pain. The patient has good rotational motion of the lumbar spine, both laterally as well as extension and flexion without significant difficulty. EXTREMITIES: Lower extremities show deep tendon reflexes 2+ in the patellar and tendo calcaneus tendons. Motor exam is 5 on a scale of 5 with right dorsiflexion, extension, quadriceps and hamstring flexion and 5/5 on the left. Peripheral pulses are 1+ posterior tibial. No peripheral edema is noted bilaterally. Lower extremities are warm and dry. SKIN: Shows warm and dry, good turgor. No edema. No sores, rashes or bruising throughout. Procedure: Procedure: Options were discussed with patient. Patient chart was reviewed his current medication regimen updated current review of systems updated today as well. We will proceed with a spinal cord stimulator temporary leads placement x2 with fluoroscopic guidance. Risks were discussed including but not limited to: Bleeding, infection, possibility of epidural hematoma and subsequent neurological compromise, dural puncture, headaches, spinal cord and/or nerve damage, and poor results regarding pain control. Patient understands and wished to proceed. Patient return to clinic in approximate 1 week for removal of temp orary leads and reevaluation of patient's pain condition at that time. Medication Injected: Med Injected: Under sterile prep and drape patient in prone position using C-arm fluoroscopic guidance patient's lumbar spine was identified and vertebral levels were counted did put external marker on the T8 level. This time the lumbar spine was revisualized and using 1% lidocaine, the area over the L4-5 level was anesthetized and then using a 14-gauge Qosmostead needle with stylette was entered to the epidural space at the L2-3 level using a paramedian approach to the right with preservative-free normal saline [id number] technique aspiration was noted to be negative and using direct fluoroscopy visualization spinal cord stimulator lead was then advanced without significant resistance in the midline and confirmed posterior with both AP and lateral views, and advanced to the superior endplate of the T8 vertebral level superimposed with the superior spinal cord stimulator electrode lead. Fluoroscopy was used in a lateral view to verify posterior placement in the epidural space at this point as well. At this time a second lead was then introduced in similar fashion at the L 4-5 level and inserted and in the epidural space at the L3-4 level once again with preservative-free normal saline [id number] technique. Aspiration was again noted to be negative and using direct visualization with fluoroscopy second lumbar spinal cord stimulator lead was advanced without significant res istance in the midline with the superior electrode superimposed over the superior endplate of the T9 vertebral body. Lateral visualization was again confirmed with placement of the stimulator in the posterior epidural space. At this time the needles and stylette were removed with intermittent fluoroscopic visualization maintaining that the leads had not moved during this process and this was confirmed. This time 1% lidocaine was used to anesthetize the skin next to the insertion sites of the stimulator wires and using a 2-0 silk were then sutured in place. Mastisol and Tegaderm was then applied as well as reinforcing tape and gauze. Patient was transferred to the recovery area under his own power walking without difficulty and had no immediate complications from the procedure. Stimulation was then carried out with [facility] representatives. Patient will return to the clinic in approximately 1 week for removal of the temporary leads and reassessment of the patient's pain level. Condition at Discharge: Condition at Discharge: Condition at discharge stable, patient tolerated procedure well and had no c omplications. TEMI CHACON MD May 04, 2021 15:28
== END | disposition home or self-care (01) ==
LOC: PNCL 13:57
PROVIDERS: ATTEND Anesthesiology
DX: M96.1 Postlaminectomy syndrome, not elsewhere classified (principal); M51.16 Intervertebral disc disorders with radiculopathy, lumbar region; E78.00 Pure hypercholesterolemia, unspecified; E11.9 Type 2 diabetes mellitus without complications; G47.30 Sleep apnea, unspecified; M19.90 Unspecified osteoarthritis, unspecified site; Z79.899 Other long term (current) drug therapy; Z98.890 Other specified postprocedural states; Z72.89 Other problems related to lifestyle; Z83.3 Family history of diabetes mellitus
CPT/HCPCS: 63650; C1897; J3490

== ENCOUNTER → 2021-05-11 | Outpatient (CLI) | payer OTHER ==
[2021-04-11 11:56] VITALS: BP 117/70
[~2021-05-11] MED LIST changes: -LIDOCAINE 1% PF 2 ML VIAL. ONE
--- NOTE | 2021-05-11 14:23 | PDOC ---
Progress Note - Pain Clinic Date of Service: DOS: DATE: 05/11/21 TIME: 14:20 Diagnosis: Dx: Lumbar radiculopathy with lumbar degenerative disease and lumbar postlaminectomy syndrome History or Present Illness: HPI: 60-year-old male returns for follow-up status post medical stimulator temporary leads placement 1 week ago. Patient reports about 75% improvement in the pain low back and bilateral lower extremities patient is very pleased with his progress has been increasing activity walking greater distances traveling greate r distances driving greater distances sleeping better at night patient reports doing work activities household activities with much greater ease and comfort patient is very pleased with his level of pain is reduction is significant patient reports his pain is a 5 on a scale 10 is worst over the past week for an average 3 days least and is a 3 today patient describes as aching but only on and off in the back and legs and mostly just in the back. Patient reports no new motor or sensory deficits no bowel bladder incontinence. Physical Exam: VS: Blood pressure is 135/81 pulse 81 respirations 18 temperature 98.1 F height 5 feet 11 inches weight is 251 pounds PE: PHYSICAL EXAMINATION: GENERAL: The patient is awake, alert, oriented, appropriate, very pleasant in demeanor HEENT: Shows normocephalic, atraumatic. Extraocular movements are intact and symmetrical. Oral cavity: Mucous membranes moist and pink. NECK: Shows anterior throat supple without palpable lymphadenopathy noted. Swallow reflex symmetrical. CHEST: Shows normal on inspection. Breath sounds are clear bilaterally no rales or rhonchi. HEART: Shows S1, S2 clear. No murmurs auscultated. ABDOMEN: Soft, nontender, nondistended. No palpable organomegaly is noted. No rebound or guarding demonstrated. BACK: Shows spine grossly in the midline. Normal-appearing cervical lordotic curvature. There is increased thoracic kyphosis, some flattening of the lumbar lordotic curvature, with well-healed surgical scar noted. Lumbar paraspinous muscles show symmetrical on inspection, on palpation shows some moderate tenderness diffusely throughout the upper, middle and lower distribution of the paraspinous muscles without specific trigger points, without radiation of pain. The patient has good rotational motion of the lumbar spine, both laterally as well as extension and flexion without significant difficulty. Patient's spinal cord stimulator leads were removed using sterile technique sutures removed and sterile bandage applied tips intact on each temporary lead x2. EXTREMITIES: Lower extremities show deep tendon reflexes 2+ in the patellar and tendo calcaneus tendons. Motor exam is 5 on a scale of 5 with right dorsiflexion, extension, quadriceps and hamstring flexion and 5/5 on the left. Peripheral pulses are 1+ posterior tibial. No peripheral edema is noted bilaterally. Lower extremities are warm and dry. SKIN: Shows warm and dry, good turgor. No edema. No sores, rashes or bruising throughout. Procedure: Procedure: Options were discussed with the patient. Patient chart was reviewed his current medication regimen updated current review of systems updated today as well. We will remove stimulator lead today under sterile technique tips were intact x2 site clean and dry no erythema no tenderness no drainage. We will make arrangements for permanent stimulator placement. Medication Injected: Med Injected: None Condition at Discharge: Condition at Discharge: Condition at discharge is stable. TEMI CHACON MD May 11, 2021 14:23
== END | disposition home or self-care (01) ==
LOC: PNCL 13:52
PROVIDERS: ATTEND Anesthesiology
DX: M51.16 Intervertebral disc disorders with radiculopathy, lumbar region (principal); M96.1 Postlaminectomy syndrome, not elsewhere classified; E78.00 Pure hypercholesterolemia, unspecified; E11.9 Type 2 diabetes mellitus without complications; M19.90 Unspecified osteoarthritis, unspecified site; G47.30 Sleep apnea, unspecified; Z79.899 Other long term (current) drug therapy; Z98.890 Other specified postprocedural states; Z72.89 Other problems related to lifestyle
CPT/HCPCS: 99212; G0463

== ENCOUNTER 2021-06-06 17:32 | Emergency (ER) | payer OTHER | END 2021-06-07 01:55 | disposition left against medical advice (07) | LOC: ER 17:32 | DX: G89.18 Other acute postprocedural pain (principal); M79.605 Pain in left leg; Z53.21 Procedure and treatment not carried out due to patient leaving prior to being seen by health care provider ==

== ENCOUNTER 2021-08-05 17:21 | Emergency (ER) | payer OTHER ==
[~2021-08-05] VITALS: Ht 180.3 cm; Wt 115.9 kg
[2021-08-05 18:05] VITALS: BP 139/80
--- NOTE | 2021-08-05 18:13 | PHYS DOC ---
Past Medical History Past Medical History: Constipation, GERD, High Cholesterol, Other Additional Past Medical Histor: high cholesterol Past Surgical History: Other Additional Past Surgical Histo: KNEE, BACK, CARPALTONAL Smoking Status: Never Smoker Alcohol Use: Occasionally Drug Use: None General Adult EDM: Chief Complaint: LOWER EXTREMITY SWELLING HPI: HPI: Patient presents here with mild left leg pain. About 2 months ago, he was diagnosed with a left lower extremity DVT. He was subsequently started on Xarelto. He has followed up since that time with his primary care physician. He last saw them about 2 weeks ago. An outpatient ultrasound was ordered at that time. He went for his outpatient ultrasound today. And he reports that he was told that the DVT is still there. He contacted the nurse practitioner at his doctor's office, who recommended he come to the ER. He denies chest pain, d yspnea, dizziness, syncope, dyspnea exertion, palpitations. He denies any swelling of his leg. Denies numbness or tingling or motor weakness. He denies any more pain than he has had previously, in fact he denies any severe pain at present. He denies symptoms of claudication. He denies skin changes of his lower extremity, denies dusky discoloration, denies rubor. He reports that he did not really want to come to the ER but he was told to do so, so he did. He reports compliance with Xarelto. He is not out of this medication, and he has plenty of his other regularly prescribed medications. Review of Systems: Review of Systems: Review of systems as per HPI Heart Score: C/O Chest Pain: No Risk Factors: Risk Factors: DM, Current or recent (<one month) smoker, HTN, HLP, family history of CAD, obesity. Risk Scores: Score 0 - 3: 2.5% MACE over next 6 weeks - Discharge Home Score 4 - 6: 20.3% MACE over next 6 weeks - Admit for Clinical Observation Score 7 - 10: 72.7% MACE over next 6 weeks - Early Invasive Strategies Allergies: Allergies: Allergies Coded Allergies Type Severity Reaction Last Updated Verified No Known Drug Allergies 02/03/15 No Physical Exam: PE: Constitutional: Well developed, well nourished, no acute distress, non-toxic appearance. [] HENT: Normocephalic, atraumatic Eyes: Conjunctiva normal, no discharge. [] Neck: Trachea midline, no JVD Cardiovascular: Lungs are clear to auscultation bilaterally without rales, rhonchi or wheezes. +2 dorsalis pedis and +2 posterior tibial pulses bilaterally. No edema. No cyanosis. Lungs & Thorax: Clear to auscultation bilaterally without rales, rhonchi or wheezes Skin: Skin is warm, dry, intact. No cyanosis, no dusky discoloration, no warmth or erythema. Back: No tenderness, no CVA tenderness. [] Extremities: No tenderness, no cyanosis, no clubbing, ROM intact, no edema. No calf tenderness. No palpable cord. No warmth, no erythema, no evidence of cyanosis, no discoloration of either lower extremity. Cap refill is brisk and less than 2 seconds. Pelvis is stable. Bilateral hips, bilateral knees are nontender. Neurologic: Alert and oriented X 3, normal motor function, normal sensory function, no focal deficits noted. [] Psychologic: Affect normal, judgement normal, mood normal. He is pleasant cooperative EKG: EKG: [] Radiology/Procedures: Radiology/Procedures: [] Course & Med Decision Making: Course & Med Decision Making I discussed the findings, differential diagnosis and plan of care with the patient. He reports compliant with Xarelto, he has plenty of his medications at home. He has a known DVT, is minimally symptomatic with pain, and the manifest no evidence of large clot burden on physical exam. Clinically I see no utility in further invasive exams, repeat imaging or laboratory evaluation or admission based on current clinical presentation. I tell him to follow-up with his physician on Sunday. I gave very strict return precautions, specifically those which pertain to increase in clot burden, if you develop signs or symptoms of phlegmasia cerulea dolens, if he develops any chest pain, shortness of breath, dyspnea with exertion, syncope or dizziness or weakness. He has none of these at present. Medical management would not be changed at this time. I did recommend that he should contact his doctor and discuss a formal thrombophilia work-up. He verbalized understanding, he is very comfortable to plan of care. Kym Disclaimer: Kym Disclaimer: This electronic medical record was generated, in whole or in part, using a voice recognition dictation system. Departure Departure Impression: Primary Impression: Lower leg DVT (deep venous thromboembolism), chronic Qualified Codes: I82.5Z2 - Chronic embolism and thrombosis of unspecified deep veins of left distal lower extremity Disposition: HOME / SELF CARE / HOMELESS Condition: STABLE Referrals: BRIA SPARKS (PCP) Patient Instructions: Deep Vein Thrombosis Additional Instructions: Please continue taking the Xarelto as directed by your doctor. At this time, there would be no change in your medical management. You should discuss having a formal clotting disorder work-up done by your primary care doctor. You may need to be referred to a supervisor as well. Please return to the ER for chest pain, shortness of breath, dizziness, palpitations, if you develop severe swelling in your leg, if you develop discoloration of your leg, more severe pain, if you are acutely injured or for any other concerns. Please contact your primary care doctor's office on Sunday to discuss this further. ZABRINA ROLAND DO Aug 05, 2021 18:13
== END 2021-08-05 18:42 | disposition home or self-care (01) ==
LOC: ER 17:21
DX: I82.5Z2 Chronic embolism and thrombosis of unspecified deep veins of left distal lower extremity (principal); K21.9 Gastro-esophageal reflux disease without esophagitis; E78.00 Pure hypercholesterolemia, unspecified
CPT/HCPCS: 99282